=== PATIENT | male | born 1955 | race Two or more races ===

== ENCOUNTER 2019-10-29 15:30 | Emergency (ER) | payer SELFPAY ==
[~2019-10-29] VITALS: Ht 165.1 cm; Wt 67.2 kg
[2019-10-29 16:00] LABS: BASOPHILS % 0.3 % (0.0-2.0); EOSINOPHILS % 3.5 % (0.0-5.0); HEMATOCRIT. 36.7 % (42.0-52.0); HEMOGLOBIN. 12.6 g/dL (14.0-18.0); LYMPHOCYTES % 18.1 % (20.0-50.0); MEAN CORPUSCULAR HEMOGLOBIN 32.2 pg (28.0-32.0); MEAN CORPUSCULAR VOLUME 93.6 fL (80.0-94.0); MEAN PLATELET VOLUME 8.3 fl (7.4-10.4); MONOCYTES % 10.7 % (2.0-8.0); NEUTROPHILS % 67.4 % (40.0-76.0); PLATELET 203 x1000/uL (130-400); RED BLOOD CELL COUNT 3.92 mill/uL (4.7-6.1); RED CELL DISTRIBUTION WIDTH 13.4 % (11.6-14.6)
[2019-10-29 16:02] LABS: CHLORIDE 104 mEq/L (98-107)
[2019-10-29 16:05] LABS: ETHANOL BLOOD < 10 mg/dL
[2019-10-29] MEDS ORDERED: CLOPIDOGREL 75MG TABLET PO ONE (16:45)
[2019-10-29] MEDS ORDERED: ASPIRIN 325MG TABLET PO ONE (16:45)
[2019-10-29 18:22] VITALS: BP 145/72
== END 2019-10-29 18:26 | disposition left against medical advice (07) ==
LOC: ER 15:40
DX: I63.9 Cerebral infarction, unspecified (principal)
CPT/HCPCS: 36415; 71045; 80053; 80320; 82962; 84484; 85025; 99284; G0480